=== PATIENT | male | born 1995 | race African-American/Black ===

== ENCOUNTER 2019-11-18 18:38 | Emergency (ER) | payer OTHER ==
[~2019-11-18] VITALS: Ht 188 cm; Wt 84.8 kg
[2019-11-18 18:49] VITALS: Ht 188 cm; Wt 84.8 kg
[2019-11-18 21:29] VITALS: BP 125/76
[2019-11-18 23:39] LABS: CALCIUM 9.4 mg/dL (8.5-10.1); CARBON DIOXIDE 22.3 mmol/L (21-32); CREATININE SERUM 1.6 mg/dL (0.7-1.3); POTASSIUM SERUM 3.5 mmol/L (3.5-5.1)
[2019-11-18 23:44] LABS: ALBUMIN 4.5 g/dL (3.4-5.0); BILIRUBIN TOTAL 0.6 mg/dL (0.20-1.00)
[2019-11-24 17:10] LABS: PLATELET COUNT 236 x10^3mcL (130-400); RED CELL DISTRIBUTION WIDTH 12.5 % (11.5-14.5)
[2019-11-24 17:11] LABS: BASOPHIL % 0.3 % (0-2)
== END 2019-11-18 21:29 | disposition short-term general hospital (02) ==
LOC: ED 18:38
PROVIDERS: Specialist
DX: S82.892A Other fracture of left lower leg, initial encounter for closed fracture (principal); Z20.828 Contact with and (suspected) exposure to other viral communicable diseases; W18.30XA Fall on same level, unspecified, initial encounter; Y93.67 Activity, basketball; Y92.310 Basketball court as the place of occurrence of the external cause; Y99.8 Other external cause status
CPT/HCPCS: 90715; J0690; J1580; J2270; J2405; J7030; J7060; Q0092